=== PATIENT | female | born 1985 | race Caucasian/White ===

== ENCOUNTER 2018-02-04 07:45 | Emergency (ER) | END 2018-02-04 11:32 | disposition home or self-care (01) ==

== ENCOUNTER 2019-01-21 13:47 | Emergency (ER) | payer MEDICAID ==
[~2019-01-21] VITALS: Wt 78.0 kg
[~2019-01-21 13:47] MED LIST: NAPR-688 PO; ONDA4TAB11 PO; OXYC-279 PO
[2019-01-21 13:48] VITALS: BP 120/69; PULSE 69; RESP 18
[2019-01-21] MEDS ORDERED: LAMO200T3 PO (15:13)
--- NOTE | 2019-01-21 15:19 | ERD ---
ER Documentation Chief Complaint Chief Complaint refill of lamictal HPI Patient is a 33-year-old female with a past medical history of seizure disorder presents ER for concerns of a nasal refill. Patient states she recently had insurance changes and needs a refill. Patient takes Lamictal 100 mg daily. Patient denies any recent seizures. Patient denies any chest pain, shortness of breath, headache, nausea, vomiting or LOC. ROS All systems reviewed and are negative except as per history of present illness. Medications Home Meds Active Scripts Lamotrigine* (Lamictal*) 200 Mg Tablet, 200 MG PO DAILY, #30 TAB Prov:WALTER ARMENTA PA-C 01/21/19 Ondansetron (Zofran Odt) 4 Mg Tab.rapdis, 4 MG PO Q6 for NAUSEA AND/OR VOMITING, #10 Prov:ASHUTOSH LOWERY DO 02/04/18 Naproxen* (Naproxen*) 500 Mg Tablet, 500 MG PO BID PRN for PAIN, #20 TAB Prov:SEBASTIÁNASHUTOSH 02/04/18 Oxycodone HCl/Acetaminophen (Percocet 5-325 mg Tablet) 1 Each Tablet, 1 EACH PO Q6 for SEVERE PAIN LEVEL 7-10, #20 TAB Prov:ASHUTOSH LOWERY 02/04/18 PMhx/Soc Hx Alcohol Use: No Hx Substance Use: No Hx Tobacco Use: Yes FmHx Family History: No diabetes Physical Exam Vitals Vital Signs Date Temp Pulse Resp B/P (MAP) Pulse Ox O2 O2 Flow FiO2 Time Delivery Rate 01/21/19 97.3 69 18 120/69 99 13:48 (86) Physical Exam GENERAL: Well-developed, well-nourished female. Appears in no acute distress. HEAD: Normocephalic, atraumatic. EYES: Pupils are equally reactive bilaterally. EOMs grossly intact. No conjunctival erythema. NECK: Supple. No meningismus. Normal range of motion of the neck. LUNG: Clear to auscultation bilaterally. No rhonchi, wheezing, rales or coarse breath sounds. HEART: Regular rate and rhythm. No murmurs, rubs or gallops. EXTREMITIES: Equal pulses bilaterally. No peripheral clubbing, cyanosis or edema. No unilateral leg swelling. NEUROLOGIC: Alert and oriented. Moving all four extremities without any difficulty. Normal speech. Steady gait. SKIN: Normal color. Warm and dry. No rashes or lesions. Procedures/MDM MEDICAL DECISION MAKING: Patient is a 33-year-old female with history of seizure disorder presents ER for concerns of medication refill. Patient states she has had recent insurance changes and needs refill of Lamictal 200 mg daily. Vital signs were reviewed. Patient is afebrile. Patient was not hypoxic. Patient was hemodynamically stable. Patient was advised to follow-up with primary care physician for any additional refills. PRESCRIPTION: Lamictal DISCHARGE: At this time, patient is stable for discharge and outpatient management. I have instructed the patient to follow-up with his/her primary care physician in 1-2 days. I have discussed with the patient the possibility of needing to see a specialist for further workup and imaging studies if symptoms persist. I have instructed the patient to promptly return to the ER for any new or worsening symptoms including increased pain, fever, nausea, vomiting, weakness or LOC. The patient and/or family expressed understanding of and agreement with this plan. All questions were answered. Home care instructions were provided. Disclaimer: Inadvertent spelling and grammatical errors are likely due to EHR/dictation software use and do not reflect on the overall quality of patient care. Also, please note that the electronic time recorded on this note does not necessarily reflect the actual time of the patient encounter. Departure Diagnosis: Primary Impression: Encounter for medication refill Additional Impression: Seizure disorder Condition: Stable Patient Instructions: Taking Medicine Safely Referrals: [facility] YOU HAVE RECEIVED A MEDICAL SCREENING EXAM AND THE RESULTS INDICATE THAT YOU DO NOT HAVE A CONDITION THAT REQUIRES URGENT TREATMENT IN THE EMERGENCY DEPARTMENT. FURTHER EVALUATION AND TREATMENT OF YOUR CONDITION CAN WAIT UNTIL YOU ARE SEEN IN YOUR DOCTORS OFFICE WITHIN THE NEXT 1-2 DAYS. IT IS YOUR RESPONSIBILITY TO MAKE AN APPOINTMENT FOR FOLOW-UP CARE. IF YOU HAVE A PRIMARY DOCTOR --you should call your primary doctor and schedule an appointment IF YOU DO NOT HAVE A PRIMARY DOCTOR YOU CAN CALL OUR PHYSICIAN REFERRAL HOTLINE AT IF YOU CAN NOT AFFORD TO SEE A PHYSICIAN YOU CAN CHOSE FROM THE FOLLOWING [facility] CLINICS [facility] [address] [facility] [address] [facility] [address] [facility] [address] [facility]. [facility] [address] [facility]. [facility]. [address] [facility]. [facility] YOU HAVE RECEIVED A MEDICAL SCREENING EXAM AND THE RESULTS INDICATE THAT YOU DO NOT HAVE A CONDITION THAT REQUIRES URGENT TREATMENT IN THE EMERGENCY DEPARTMENT. FURTHER EVALUATION AND TREATMENT OF YOUR CONDITION CAN WAIT UNTIL YOU ARE SEEN IN YOUR DOCTORS OFFICE WITHIN THE NEXT 1-2 DAYS. IT IS YOUR RESPONSIBILITY TO MAKE AN APPOINTMENT FOR FOLOW-UP CARE. IF YOU HAVE A PRIMARY DOCTOR --you should call your primary doctor and schedule and appointment IF YOU DO NOT HAVE A PRIMARY DOCTOR YOU CAN CALL OUR PHYSICIAN REFERRAL HOTLINE AT . IF YOU CAN NOT AFFORD TO SEE A PHYSICIAN YOU CAN CHOSE FROM THE FOLLOWING [facility] INSTIT[facility]IONS: [facility] [address] [place] [address] [facility] [address] [place], [place] [id number] [place] [address] + [facility] [address] [place] [address] Additional Instructions: Llame al doctor MAANA y justin tigre TAE PARA DENTRO DE 1-2 LU.Dgale a la secretaria que nosotros le instruimos hacer esta tae.Avise o llame si roman condicin se empeora antes de la tae. Regresa aqui si peor o no mejor. WALTER ARMENTA PA-C Jan 21, 2019 15:19
== END 2019-01-21 16:00 | disposition home or self-care (01) ==
LOC: FTE 13:47
DX: Z76.0 Encounter for issue of repeat prescription (principal); G40.909 Epilepsy, unspecified, not intractable, without status epilepticus
CPT/HCPCS: 99283

== ENCOUNTER 2019-02-20 15:13 | Emergency (ER) | payer MEDICAID ==
[~2019-02-20] VITALS: Ht 167.6 cm; Wt 68.0 kg
[~2019-02-20 15:13] MED LIST changes: +LAMO200T3 PO
[2019-02-20 15:16] VITALS: BP 118/60; PULSE 63; RESP 20; Ht 167.6 cm; Wt 68.0 kg
[2019-02-20] MEDS ORDERED: LAMO200T3 PO (15:45)
--- NOTE | 2019-02-20 15:48 | ERD ---
ER Documentation Chief Complaint Chief Complaint Patient here for a medication refill of Lamictal HPI This is a very pleasant 33-year-old female with a past medical history of epilepsy. The patient takes Lamictal. She indicates that today she ran out of her medications. Due to her insurance she was unable to get into a primary care physician therefore came to the emergency department to have her medications refilled. She denies any rashes from the Lamictal. She said no fevers or shaking or chills. She denies headache. She has no chest pain no shortness of breath ROS All systems reviewed and are negative except as per history of present illness. Medications Home Meds Active Scripts Lamotrigine* (Lamictal*) 200 Mg Tablet, 200 MG PO DAILY, #30 TAB Prov:ESSIE STEVE MD 02/20/19 Lamotrigine* (Lamictal*) 200 Mg Tablet, 200 MG PO DAILY, #30 TAB Prov:WALTER ARMENTA PA-C 01/21/19 Ondansetron (Zofran Odt) 4 Mg Tab.rapdis, 4 MG PO Q6 for NAUSEA AND/OR VOMITING, #10 Prov:ASHUTOSH LOWERY DO 02/04/18 Naproxen* (Naproxen*) 500 Mg Tablet, 500 MG PO BID PRN for PAIN, #20 TAB Prov:ASHUTOSH LOWERY DO 02/04/18 Oxycodone HCl/Acetaminophen (Percocet 5-325 mg Tablet) 1 Each Tablet, 1 EACH PO Q6 for SEVERE PAIN LEVEL 7-10, #20 TAB Prov:ASHUTOSH LOWERY DO 02/04/18 PMhx/Soc History of Surgery: No Anesthesia Reaction: No Hx Neurological Disorder: Yes (seizures) Hx Respiratory Disorders: No Hx Cardiac Disorders: No Hx Psychiatric Problems: No Hx Miscellaneous Medical Probl: No Hx Alcohol Use: No Hx Substance Use: No Hx Tobacco Use: Yes Physical Exam Vitals Vital Signs Date Temp Pulse Resp B/P (MAP) Pulse Ox O2 O2 Flow FiO2 Time Delivery Rate 02/20/19 98.3 63 20 118/60 99 15:16 (79) Physical Exam Constitutional:Well-developed. Well-nourished. HEENT:Normocephalic. Atraumatic.Pupils were equal round reactive to light. Moist mucous membranes. Respiratory: Not using accessory muscles of respiration.Lungs were clear to a uscultation bilaterally. No rhonchi. No rales. No wheezing. Cardiovascular: Regular rate regular rhythm.No murmurs. No rubs were appreciated.S1, S2 normal. Distal pulses are palpable 2+ bilaterally. NEURO: Patient was alert, awake, orientated x3.No facial droop. Gait observed and normal with no ataxia.Speech had regular rate and rhythm. No focal neurological deficits. Procedures/MDM This is a very pleasant 31-year-old female that presented to the emergency department for medication refill. The patient takes 200 mg of Lamictal on a daily basis. This is refilled for the patient and I gave her a 30-day prescrip tion. The patient was discharged home in fair condition. They were instructed to return to the emergency department at any time if there was any worsening of their condition. The patient stated they would follow up with their PCP in the next 24-48 hours to initiate a suitable medication regimen under the care of their PCP as well as to allow their PCP to monitor any drug reactions. The patient was discharged home with prescriptions after they gave informed consent to the new medication. They were also fully informed by myself on the adverse effects and adverse drug interactions in order to provide adequate safeguards to prevent possible adverse reactions to medications. Departure Diagnosis: Primary Impression: Encounter for medication refill Condition: Fair Patient Instructions: Medical Screening Exam, Nonurgent Referrals: NO PRIMARY,CARE PHYSICIAN (PCP) ESSIE STEVE MD February 20, 2019 15:48
== END 2019-02-20 15:57 | disposition home or self-care (01) ==
LOC: E/R 15:13
DX: Z76.0 Encounter for issue of repeat prescription (principal); Z87.891 Personal history of nicotine dependence
CPT/HCPCS: 99281

== ENCOUNTER 2019-03-03 11:43 | Emergency (ER) | payer MEDICAID ==
[~2019-03-03] VITALS: Ht 160 cm; Wt 62.0 kg
[2019-03-03 12:05] VITALS: Ht 160 cm; Wt 62.0 kg
[2019-03-03] MEDS ORDERED: NAPR-985 PO (15:34)
--- NOTE | 2019-03-03 15:39 | ERD ---
ER Documentation Chief Complaint Chief Complaint right knee pain x 2 days HPI 33-year-old female presents for right knee pain x2 days. She states that she was walking and stepped funny and developed the pain. The pain is mostly on the medial side of the right knee. She states that his pressure type sensation rate d 5 out of 10. She is been taking Tylenol and Motrin with mild relief. Denies significant past medical history. No other modifying factors noted, no other treatments tried at home. ROS All systems reviewed and are negative except as per history of present illness. Medications Home Meds Active Scripts Naproxen* (Naprosyn*) 500 Mg Tablet, 500 MG PO BID PRN for PAIN AND/OR INFLAMMATION, #30 TAB Prov:BERHANE TRIVEDI DO 03/03/19 Lamotrigine* (Lamictal*) 200 Mg Tablet, 200 MG PO DAILY, #30 TAB Prov:ESSIE STEVE MD 02/20/19 Lamotrigine* (Lamictal*) 200 Mg Tablet, 200 MG PO DAILY, #30 TAB Prov:WALTER ARMENTA PA-C 01/21/19 Ondansetron (Zofran Odt) 4 Mg Tab.rapdis, 4 MG PO Q6 for NAUSEA AND/OR VOMITING, #10 Prov:ASHUTOSH LOWERY DO 02/04/18 Naproxen* (Naproxen*) 500 Mg Tablet, 500 MG PO BID PRN for PAIN, #20 TAB Prov:ASHUTOSH LOWERY DO 02/04/18 Oxycodone HCl/Acetaminophen (Percocet 5-325 mg Tablet) 1 Each Tablet, 1 EACH PO Q6 for SEVERE PAIN LEVEL 7-10, #20 TAB Prov:ASHUTOSH LOWERY DO 02/04/18 PMhx/Soc History of Surgery: No Anesthesia Reaction: No Hx Neurological Disorder: Yes (seizures) Hx Respiratory Disorders: No Hx Cardiac Disorders: No Hx Psychiatric Problems: No Hx Miscellaneous Medical Probl: No Hx Alcohol Use: No Hx Substance Use: No Hx Tobacco Use: Yes FmHx Family History: No coronary disease Physical Exam Vitals Vital Signs Date Temp Pulse Resp B/P (MAP) Pulse Ox O2 O2 Flow FiO2 Time Delivery Rate 03/03/19 97.8 74 18 124/72 97 12:05 (89) Physical Exam Const: No acute distress Resp: Clear to auscultation bilaterally Cardio: Regular rate and rhythm, no murmurs Skin: No petechiae or rashes Back: No midline or flank tenderness Neur: Awake and alert Psych: Normal Mood and Affect Lower Extremity -right: Skin: No laceration Compartments: Soft Motor: Full active range of motion hip/knee/ankle/foot Sensation: Intact to light touch FDWS/MF/LF/P surfaces. Bones: Nontender pelvis/proximal tibia/ malleoli/foot, there is some tenderness palpation of the right knee medial side Joints: No effusion or laxity Pulses/Perfusion: 2+ DP, Capillary refill < 2 seconds Procedures/MDM Medical Decision Making: Differential diagnosis includes but not limited to fracture, dislocation, muscle strain, ligamentous sprain. Patient appeared well on physical exam. There was tenderness over the right knee medial side Patient was neurovascularly intact There is no swelling note, and tenderness to palpation with mild on examination. Therefore there is low suspicion for a fracture. Prescription(s): Patient given prescription for supportive medication(s). Patient advised to ice, elevate for pain. Advised to do range of motion exercises once the pain improves. Patient advised to follow up with PCP in 1-2 days. Patient advised to return to ED for new or worsening symptoms. Patient stable on discharge from the ED. Disclaimer: Inadvertent spelling and grammatical errors are likely due to EHR/dictation software use and do not reflect on the overall quality of patient care. Also, please note that the electronic time recorded on this note does not necessarily reflect the actual time of the patient encounter. Departure Diagnosis: Primary Impression: Right knee pain Chronicity: acute Qualified Codes: M25.561 - Pain in right knee Condition: Fair Patient Instructions: Knee Sprain Referrals: [facility] YOU HAVE RECEIVED A MEDICAL SCREENING EXAM AND THE RESULTS INDICATE THAT YOU DO NOT HAVE A CONDITION THAT REQUIRES URGENT TREATMENT IN THE EMERGENCY DEPARTMENT. FURTHER EVALUATION AND TREATMENT OF YOUR CONDITION CAN WAIT UNTIL YOU ARE SEEN IN YOUR DOCTORS OFFICE WITHIN THE NEXT 1-2 DAYS. IT IS YOUR RESPONSIBILITY TO MAKE AN APPOINTMENT FOR FOLOW-UP CARE. IF YOU HAVE A PRIMARY DOCTOR --you should call your primary doctor and schedule an appointment IF YOU DO NOT HAVE A PRIMARY DOCTOR YOU CAN CALL OUR PHYSICIAN REFERRAL HOTLINE AT IF YOU CAN NOT AFFORD TO SEE A PHYSICIAN YOU CAN CHOSE FROM THE FOLLOWING [facility] [address] [facility] [address] [facility] [address] [facility] [address] [facility]. [facility] [address] [facility]. [facility] [address] Additional Instructions: Call your primary care doctor TOMORROW for an appointment during the next 1-2 days.See the doctor sooner or return here if your condition worsens before your appointment time. Recommend ice, elevation pain medication as needed and as prescribed BERHANE TRIVEDI DO March 03, 2019 15:38
[2019-03-03 15:58] VITALS: BP 122/76; PULSE 73; RESP 16
== END 2019-03-03 16:20 | disposition home or self-care (01) ==
LOC: FTE 11:43
DX: M25.561 Pain in right knee (principal); Z87.891 Personal history of nicotine dependence
CPT/HCPCS: 99282

== ENCOUNTER 2019-04-21 11:11 | Emergency (ER) | payer MEDICAID, OTHER ==
[~2019-04-21] VITALS: Ht 167.6 cm; Wt 65.2 kg
[~2019-04-21 11:11] MED LIST changes: +NAPR-985 PO
[2019-04-21 11:18] VITALS: BP 102/62; PULSE 73; RESP 18; Ht 167.6 cm; Wt 65.2 kg
[2019-04-21] MEDS ORDERED: LAMOTRIGINE 100 MG TAB PO ONE (12:00)
[2019-04-21] MEDS ORDERED: LAMO200T3 PO (12:23)
--- NOTE | 2019-04-21 15:53 | ERD ---
ER Documentation Chief Complaint Chief Complaint needs lamictal 200mg refil HPI 33-year-old female with history of seizures presents for refill of her Lamictal. Patient states that she just recently switched doctors due to her insurance and she is not able to get a refill and she ran out of medication today. She has not yet taken her medication today. Patient denies any recent seizures and states she feels totally fine and asymptomatic. ROS All systems reviewed and are negative except as per history of present illness. Medications Home Meds Active Scripts Lamotrigine* (Lamictal*) 200 Mg Tablet, 200 MG PO DAILY, #30 TAB Prov:AMNA MATHIS 04/21/19 Naproxen* (Naprosyn*) 500 Mg Tablet, 500 MG PO BID PRN for PAIN AND/OR INFLAMMATION, #30 TAB Prov:BERHANE TRIVEDI DO 03/03/19 Lamotrigine* (Lamictal*) 200 Mg Tablet, 200 MG PO DAILY, #30 TAB Prov:ESSIE STEVE MD 02/20/19 Lamotrigine* (Lamictal*) 200 Mg Tablet, 200 MG PO DAILY, #30 TAB Prov:WALTER ARMENTA PA-C 01/21/19 Ondansetron (Zofran Odt) 4 Mg Tab.rapdis, 4 MG PO Q6 for NAUSEA AND/OR VOMITING, #10 Prov:ASHUTOSH LOWERY DO 02/04/18 Naproxen* (Naproxen*) 500 Mg Tablet, 500 MG PO BID PRN for PAIN, #20 TAB Prov:ASHUTOSH LOWERY DO 02/04/18 Oxycodone HCl/Acetaminophen (Percocet 5-325 mg Tablet) 1 Each Tablet, 1 EACH PO Q6 for SEVERE PAIN LEVEL 7-10, #20 TAB Prov:ASHUTOSH LOWERY DO 02/04/18 Allergies Allergies: Coded Allergies: No Known Allergy (Unverified , 04/21/19) PMhx/Soc Medical and Surgical Hx: pt denies Surgical Hx History of Surgery: No Anesthesia Reaction: No Hx Neurological Disorder: Yes (seizures) Hx Respiratory Disorders: No Hx Cardiac Disorders: No Hx Psychiatric Problems: No Hx Miscellaneous Medical Probl: No Hx Alcohol Use: No Hx Substance Use: No Hx Tobacco Use: Yes Smoking Status: Current every day smoker FmHx Family History: No diabetes, No coronary disease, No other Physical Exam Vitals Vital Signs Date Temp Pulse Resp B/P (MAP) Pulse Ox O2 O2 Flow FiO2 Time Delivery Rate 04/21/19 98.1 73 18 102/62 98 11:18 (75) Physical Exam Const: No acute distress Head: Atraumatic Eyes: Normal Conjunctiva ENT: Normal External Ears, Nose and Mouth. Neck: Full range of motion. No meningismus. Resp: Clear to auscultation bilaterally Cardio: Regular rate and rhythm, no murmurs Abd: Soft, non tender, non distended. Normal bowel sounds Skin: No petechiae or rashes Back: No midline or flank tenderness Ext: No cyanosis, or edema Neur: Awake and alert Psych: Normal Mood and Affect Results 24 hrs Current Medications Medications Dose Sig/[place] Start Time Status Last (Trade) Ordered Route PRN Stop Time Admin Dose Reason Admin Lamotrigine 200 mg ONCE ONCE 04/21/19 DC 04/21/19 (Lamictal) PO 12:00 04/21/19 12:26 12:01 Procedures/MDM MDM: Patient was given refill of her Lamictal as well as 1 dose in the ER since she had not yet taken her medication today, and advised that she needs to make sure to see her doctor so she can have her medication seizure disorder managed on outpatient basis. Patient understood and agreed. At this time, patient is stable for discharge and outpatient management. I have instructed the patient to follow-up with his/her primary care physician in 1-2 days. I have discussed with the patient the possibility of needing to see a specialist for further workup and imaging studies if symptoms persist. I have instructed the patient to promptly return to the ER for any new or worsening symptoms including but not limited to increased pain, fever, nausea, vomiting, weakness or LOC. The patient and/or family expressed understanding of and agreement with this plan. All questions were answered. Home care instructions were provided. DISCLAIMER: Inadvertent spelling and grammatical errors are likely due to EHR/dictation software use and do not reflect on the overall quality of patient care. Also, please note that the electronic time recorded on this note does not necessarily reflect the actual time of the patient encounter. Departure Diagnosis: Primary Impression: Encounter for medication refill Condition: Stable Patient Instructions: Seizures and Epilepsy Referrals: [facility] YOU HAVE RECEIVED A MEDICAL SCREENING EXAM AND THE RESULTS INDICATE THAT YOU DO NOT HAVE A CONDITION THAT REQUIRES URGENT TREATMENT IN THE EMERGENCY DEPARTMENT. FURTHER EVALUATION AND TREATMENT OF YOUR CONDITION CAN WAIT UNTIL YOU ARE SEEN IN YOUR DOCTORS OFFICE WITHIN THE NEXT 1-2 DAYS. IT IS YOUR RESPONSIBILITY TO MAKE AN APPOINTMENT FOR FOLOW-UP CARE. IF YOU HAVE A PRIMARY DOCTOR --you should call your primary doctor and schedule an appointment IF YOU DO NOT HAVE A PRIMARY DOCTOR YOU CAN CALL OUR PHYSICIAN REFERRAL HOTLINE AT IF YOU CAN NOT AFFORD TO SEE A PHYSICIAN YOU CAN CHOSE FROM THE FOLLOWING [facility] CL[facility] [address] [facility]. [facility] [address] [facility] [address] [facility] [address] [facility]. [facility] [address] [facility]. [facility]. [address] Additional Instructions: FOLLOW UP WITH YOUR PRIMARY CARE PHYSICIAN TOMORROW.Return to this facility if you are not improving as expected. AMNA MATHIS Apr 21, 2019 15:53
== END 2019-04-21 12:29 | disposition home or self-care (01) ==
LOC: FTE 11:11
DX: Z76.0 Encounter for issue of repeat prescription (principal); F17.210 Nicotine dependence, cigarettes, uncomplicated
CPT/HCPCS: Z7502; Z7610; 99283

== ENCOUNTER 2019-05-22 12:27 | Emergency (ER) | payer OTHER ==
[~2019-05-22] VITALS: Ht 165.1 cm; Wt 65.9 kg
[2019-05-22 12:37] VITALS: BP 137/89; PULSE 78; RESP 18; Ht 165.1 cm; Wt 65.9 kg
--- NOTE | 2019-05-22 12:50 | ERD ---
ER Documentation Chief Complaint Chief Complaint Here for med refill for seizure medication, ran out yesterday HPI Patient here for medication refill of Lamictal which he takes for seizures. She ran out yesterday so she has not yet been without her medications. Denies any recent seizure activity. No other complaints. ROS All systems reviewed and are negative except as per history of present illness. Medications Home Meds Active Scripts Lamotrigine* (Lamictal*) 200 Mg Tablet, 200 MG PO DAILY, #30 TAB Prov:MANDO KHAN PA-C 05/22/19 Lamotrigine* (Lamictal*) 200 Mg Tablet, 200 MG PO DAILY, #30 TAB Prov:AMNA MATHIS 04/21/19 Naproxen* (Naprosyn*) 500 Mg Tablet, 500 MG PO BID PRN for PAIN AND/OR INFLAMMATION, #30 TAB Prov:BERHANE TRIVEDI DO 03/03/19 Lamotrigine* (Lamictal*) 200 Mg Tablet, 200 MG PO DAILY, #30 TAB Prov:ESSIE STEVE MD 02/20/19 Lamotrigine* (Lamictal*) 200 Mg Tablet, 200 MG PO DAILY, #30 TAB Prov:WALTER ARMENTA PA-C 01/21/19 Ondansetron (Zofran Odt) 4 Mg Tab.rapdis, 4 MG PO Q6 for NAUSEA AND/OR VOMITING, #10 Prov:ASHUTOSH LOWERY DO 02/04/18 Naproxen* (Naproxen*) 500 Mg Tablet, 500 MG PO BID PRN for PAIN, #20 TAB Prov:ASHUTOSH LOWERY DO 02/04/18 Oxycodone HCl/Acetaminophen (Percocet 5-325 mg Tablet) 1 Each Tablet, 1 EACH PO Q6 for SEVERE PAIN LEVEL 7-10, #20 TAB Prov:ASHUTOSH LOWERY DO 02/04/18 Allergies Allergies: Coded Allergies: No Known Allergy (Unverified , 04/21/19) PMhx/Soc History of Surgery: No Anesthesia Reaction: No Hx Neurological Disorder: Yes (seizures) Hx Respiratory Disorders: No Hx Cardiac Disorders: No Hx Psychiatric Problems: No Hx Miscellaneous Medical Probl: No Hx Alcohol Use: No Hx Substance Use: No Hx Tobacco Use: Yes FmHx Family History: No diabetes Physical Exam Vitals Vital Signs Date Temp Pulse Resp B/P (MAP) Pulse Ox O2 O2 Flow FiO2 Time Delivery Rate 05/22/19 98.2 78 18 137/89 100 12:37 (105) Physical Exam Const: No acute distress Head: Atraumatic Eyes: Normal Conjunctiva ENT: Normal External Ears, Nose and Mouth. Neck: Full range of motion. No meningismus. Procedures/MDM Refill for Lamictal given. Patient counseled regarding my diagnostic impression and care plan. Prior to discharge all questions answered. Pt agrees with treatment plan and understands strict return precautions. Pt is instructed to follow up with primary care provider within 24-48 hours. Precautionary instructions provided including instructions to return to the ER if not improving or for any worsening or changing symptoms or concerns. Departure Diagnosis: Primary Impression: Encounter for medication refill Condition: Stable Patient Instructions: Taking Medicine Safely Additional Instructions: Call your primary care doctor TOMORROW for an appointment during the next 1-2 days.See the doctor sooner or return here if your condition worsens before your appointment time. MANDO KHAN PA-C May 22, 2019 12:50
== END 2019-05-22 13:00 | disposition home or self-care (01) ==
LOC: E/R 12:27
DX: Z76.0 Encounter for issue of repeat prescription (principal); Z87.891 Personal history of nicotine dependence
CPT/HCPCS: 99281